=== PATIENT | female | born 1940 | race Hispanic/Latino ===

== ENCOUNTER → 2017-02-14 | Outpatient (CLI) | payer MEDICARE ==
--- NOTE | 2017-02-21 16:10 | REPMRS ---
Patient History The patient states she had a clinical breast exam in 02/16 No known family history of cancer. Taking estrogen for 32 years. Digital Woman Screen Mammo: February 14, 2017 - Exam #: [id number] Bilateral CC and MLO view(s) were taken. Technologist: Deborah Salmon, Technologist Prior study comparison: 2016, digital bilateral screening mammo, [facility]. FINDINGS: There are scattered fibroglandular densities. There has been no change in the appearance of the mammogram from the prior studies. There is a mild amount of residual fibroglandular tissue which is fairly symmetric. There is no interval development of dominant mass, architectural distortion, or clustered microcalcification suggestive of malignancy. ASSESSMENT: BI-RADS/ACR category 1 mammogram. Negative. Recommendation Routine screening mammogram in 1 year (for women over age 40). This mammogram was interpreted with the aid of an FDA-approved computer-aided dectection system. Electronically Signed By: Greg Benjamin MD 02/21/17 [id number]
== END ==
LOC: M WHC 12:48
PROVIDERS: ATTEND Physician Assistant Medical
DX: Z12.31 Encounter for screening mammogram for malignant neoplasm of breast (principal)

== ENCOUNTER → 2017-03-16 | Outpatient (CLI) | payer MEDICARE ==
[2017-03-16 08:56] LABS: BASO % 1.4 % (0.0-1.0); EOS # 0.2 K/mm3 (0.0-0.50); EOS % 4.6 % (0.0-3.0); LARGE UNSTAINED CELL # 0.1 K/mm3 (0.0-0.4); LARGE UNSTAINED CELL % 2.3 % (0.0-4.0); LYMPH % 28.3 % (24.0-44.0); MEAN CORPUSCULAR HEMOGLOBIN 22.5 pg (27.0-33.0); MEAN CORPUSCULAR HGB CONC 30.7 g/dl (32.0-36.5); MEAN CORPUSCULAR VOLUME 73.3 fl (80.0-96.0); MONO # 0.2 K/mm3 (0.0-0.8); MONO % 4.9 % (0.0-5.0); NEUTROPHILS % 58.5 % (36.0-66.0); PLATELET COUNT, AUTOMATED 249 k/mm3 (150-450); RED CELL DISTRIBUTION WIDTH 13.6 % (11.5-14.5); WHITE BLOOD COUNT 3.4 K/mm3 (4.0-10.0)
[2017-03-16 09:18] LABS: ALBUMIN 3.7 GM/DL (3.2-5.2); ALBUMIN/GLOBULIN RATIO 1.19 (1.00-1.93); ALKALINE PHOSPHATASE 74 U/L (45-117); ALT/SGPT 20 U/L (12-78); ANION GAP 7 MEQ/L (8-16); AST/SGOT 12 U/L (15-37); BILIRUBIN,TOTAL 0.2 MG/DL (0.2-1.0); BLOOD UREA NITROGEN 23 MG/DL (7-18); CALCIUM LEVEL 8.9 MG/DL (8.8-10.2); CARBON DIOXIDE LEVEL 28 MEQ/L (21-32); CHLORIDE LEVEL 108 MEQ/L (98-107); CHOLESTEROL LEVEL 143 MG/DL (<200); CREATININE FOR GFR 0.88 MG/DL (0.55-1.02); GLOMERULAR FILTRATION RATE > 60.0 (>39); GLUCOSE, FASTING 203 MG/DL (83-110); POTASSIUM SERUM 4.3 MEQ/L (3.5-5.1); SODIUM LEVEL 143 MEQ/L (136-145); TOTAL PROTEIN 6.8 GM/DL (6.4-8.2); TRIGLYCERIDES LEVEL 110 MG/DL (<150)
== END ==
LOC: M LAB 08:28
PROVIDERS: ATTEND Physician Assistant Medical
DX: E11.9 Type 2 diabetes mellitus without complications (principal); E78.00 Pure hypercholesterolemia, unspecified; R35.0 Frequency of micturition

== ENCOUNTER → 2017-04-25 | Outpatient (REF) | payer MEDICARE | LOC: M SFHCPLAZ 11:58 | PROVIDERS: ATTEND Physician Assistant Medical | DX: E11.9 Type 2 diabetes mellitus without complications (principal) | CPT/HCPCS: 83036; 90662; G0463 ==

== ENCOUNTER → 2017-05-22 | Outpatient (REF) | payer MEDICARE | LOC: M SFHCPLAZ 14:25 | PROVIDERS: ATTEND Physician Assistant Medical | DX: E11.9 Type 2 diabetes mellitus without complications (principal) ==

== ENCOUNTER → 2017-08-03 | Outpatient (CLI) | payer MEDICARE | LOC: M SMT 11:02 | DX: M25.78 Osteophyte, vertebrae (principal); M54.32 Sciatica, left side; E11.9 Type 2 diabetes mellitus without complications | CPT/HCPCS: 72110; 83036 ==

== ENCOUNTER → 2017-08-03 | Outpatient (REF) | payer MEDICARE ==
[2017-08-03 14:33] LABS: ESTIMATED AVERAGE GLUCOSE 177 MG/DL (60-110); HEMOGLOBIN A1c 7.8 %
== END ==
LOC: M SFHCPLAZ 10:14
DX: E11.9 Type 2 diabetes mellitus without complications (principal)
CPT/HCPCS: 83036

== ENCOUNTER → 2017-09-18 | Outpatient (REF) | payer MEDICARE ==
[2017-09-18 17:46] LABS: INR 0.92; PROTHROMBIN TIME 12.4 SECONDS (12.4-14.5)
[2017-09-18 17:47] LABS: PARTIAL THROMBOPLASTIN TIME 34.9 SECONDS (26.8-37.9)
[2017-09-18 19:04] LABS: ESTIMATED AVERAGE GLUCOSE 180 MG/DL (60-110); HEMOGLOBIN A1c 7.9 %
== END ==
LOC: M SFHCPLAZ 14:55
DX: Z01.812 Encounter for preprocedural laboratory examination (principal); H26.9 Unspecified cataract; E11.9 Type 2 diabetes mellitus without complications; Z79.899 Other long term (current) drug therapy; Z79.4 Long term (current) use of insulin; Z79.82 Long term (current) use of aspirin
CPT/HCPCS: 83036

== ENCOUNTER 2017-09-25 06:59 | Day surgery (SDC) | payer MEDICARE ==
[~2017-09-25 06:59] MED LIST: ACETAMINOPHEN 325 MG TAB PO
[2017-09-25] MEDS ORDERED: PHENYLEPHRINE HCL 10 % OPHTH. SOL 5ML OS (07:00)
[2017-09-25] MEDS ORDERED: PROPARACAINE 0.5% OPHTH SOL 15ML OS (07:01)
[2017-09-25] MEDS ORDERED: KETOROLAC 0.5% OPHTH SOLN OS (07:30)
[2017-09-25] MEDS ORDERED: TRIMETHOBENZAMIDE 300 MG CAP PO (07:30)
[2017-09-25] MEDS: LIDOCAINE 3.5 % 1ML OPHTH TOPICAL GEL OU (08:00)
[2017-09-25] MEDS: D5W/0.2% SODIUM CHLORIDE 1,000 ML IV (08:05)
[2017-09-25] MEDS: OFLOXACIN 0.3 % (OCUFLOX) OPTH SOL 5ML OS (08:05)
[2017-09-25] MEDS: CYCLOPENTOLATE 2% OPHTH SOLN 2ML BTL OS (08:05)
[2017-09-25] MEDS: TROPICAMIDE 1% OPHTH SOLN 2ML OS (08:05)
[2017-09-25] MEDS: PHENYLEPHRINE 2.5% OPHTH SOL 2ML OS (08:05)
[2017-09-25] MEDS: DEXTROSE 50% 50 ML SYRINGE IV (08:10)
[2017-09-25] MEDS ORDERED: fentaNYL 100 MCG/2 ML INJECTION (J3010) As Ordered (08:57)
[2017-09-25] MEDS ORDERED: MIDAZOLAM INJ 2 MG/2 ML VIAL (J2250) As Ordered (08:57)
[2017-09-25 09:02] LABS: BEDSIDE GLUCOSE 146 MG/DL (83-110)
[2017-09-25 09:02] LABS: BEDSIDE GLUCOSE 67 MG/DL (83-110)
[2017-09-25] MEDS: TRIAMCINOLONE PRES FR 40 MG/ML 1ML(TRIESENCE)(OR EYE ONLY)(J3300 PER 1MG) As Ordered (09:05)
[2017-09-25] MEDS: BSS with VANC/TOB/EPI for EYE CASES IR (09:05)
[2017-09-25] MEDS: LIDOCAINE 1% SDV 5 ML VIAL As Ordered (09:05)
[2017-09-25] MEDS: MOXIFLOXACIN IN BSS 0.25MG/0.25ML INTRACAMERAL INJ (OR EYE ONLY)(J2280) As Ordered (09:05)
[2017-09-25] MEDS: HEALON DUET (HEALON 10MG/ML 0.55ML & HEALON ENDOCOAT 30MG/ML 0.85ML) As Ordered (09:05)
[2017-09-25] MEDS: POVIDONE-IODINE 5% OPHTH PREP SOL 30ML As Ordered (09:05)
[2017-09-25] MEDS: AcetaZOLAMIDE 500 MG ER CAP PO (09:39)
[2017-09-25] MEDS ORDERED: ONDANSETRON 4MG/2ML VIAL (J2405) As Ordered (09:41)
[2017-09-25] MEDS: ONDANSETRON 4MG/2ML VIAL (J2405) IV (09:50)
[2017-09-25] MEDS ORDERED: LR 1,000 ML IV (10:15)
[2017-09-25] MEDS ORDERED: ACETAMINOPHEN TAB 650MG DOSE (2X325MG) PO (10:15)
== END 2017-09-25 10:18 | disposition home or self-care (01) ==
LOC: M SDC 06:59
DX: H25.9 Unspecified age-related cataract (principal); E11.9 Type 2 diabetes mellitus without complications; K21.9 Gastro-esophageal reflux disease without esophagitis; Z79.82 Long term (current) use of aspirin; Z79.4 Long term (current) use of insulin; Z79.899 Other long term (current) drug therapy
CPT/HCPCS: 66984

== ENCOUNTER → 2017-10-17 | Outpatient (REF) | payer MEDICARE ==
[2017-10-17 12:53] LABS: BASO % 0.6 % (0.0-1.0); EOS # 0.1 10^3/uL (0.0-0.50); EOS % 1.9 % (0.0-3.0); HEMATOCRIT 37.6 % (36.0-47.0); HEMOGLOBIN 11.3 g/dl (12.0-15.5); IMMATURE GRANULOCYTE % 0.2 % (0-3.0); LYMPH # 1.3 10^3/uL (1.5-4.5); LYMPH % 27.5 % (24.0-44.0); MEAN CORPUSCULAR HEMOGLOBIN 21.9 pg (27.0-33.0); MEAN CORPUSCULAR HGB CONC 30.1 g/dl (32.0-36.5); MEAN CORPUSCULAR VOLUME 72.7 fl (80.0-96.0); MONO # 0.4 10^3/uL (0.0-0.8); MONO % 8.3 % (0.0-5.0); NEUTROPHILS # 2.9 10^3/uL (1.8-7.7); NEUTROPHILS % 61.5 % (36.0-66.0); PLATELET COUNT, AUTOMATED 292 10^3/uL (150-450); RED BLOOD COUNT 5.17 10^6/uL (4.00-5.40); RED CELL DISTRIBUTION WIDTH 15.3 % (11.5-14.5); WHITE BLOOD COUNT 4.7 10^3/uL (4.0-10.0)
[2017-10-17 13:06] LABS: PROTHROMBIN TIME 12.2 SECONDS (12.4-14.5)
[2017-10-17 13:07] LABS: PARTIAL THROMBOPLASTIN TIME 33.1 SECONDS (26.8-37.9)
[2017-10-17 13:27] LABS: ALBUMIN/GLOBULIN RATIO 1.14 (1.00-1.93); ALKALINE PHOSPHATASE 88 U/L (45-117); ALT/SGPT 32 U/L (12-78); ANION GAP 7 MEQ/L (8-16); AST/SGOT 26 U/L (7-37); BILIRUBIN,TOTAL 0.3 MG/DL (0.2-1.0); BLOOD UREA NITROGEN 16 MG/DL (7-18); CALCIUM LEVEL 8.7 MG/DL (8.8-10.2); CARBON DIOXIDE LEVEL 27 MEQ/L (21-32); CHLORIDE LEVEL 109 MEQ/L (98-107); CREATININE FOR GFR 1.19 MG/DL (0.55-1.30); GLOMERULAR FILTRATION RATE 46.8 (>39); GLUCOSE, FASTING 124 MG/DL (70-100); POTASSIUM SERUM 4.7 MEQ/L (3.5-5.1); SODIUM LEVEL 143 MEQ/L (136-145); TOTAL PROTEIN 7.5 GM/DL (6.4-8.2)
[2017-10-17 13:57] LABS: ESTIMATED AVERAGE GLUCOSE 171 MG/DL (60-110); HEMOGLOBIN A1c 7.6 %
== END ==
LOC: M SFHCPLAZ 09:40
DX: Z01.818 Encounter for other preprocedural examination (principal); H26.9 Unspecified cataract; E11.9 Type 2 diabetes mellitus without complications; Z79.4 Long term (current) use of insulin; Z79.82 Long term (current) use of aspirin; Z79.899 Other long term (current) drug therapy
CPT/HCPCS: 80053

== ENCOUNTER 2017-10-23 08:41 | Day surgery (SDC) | payer MEDICARE ==
[~2017-10-23 08:41] MED LIST changes: +PHENYLEPHRINE HCL 10 % OPHTH. SOL 5ML OD
[2017-10-23] MEDS ORDERED: OFLOXACIN 0.3 % (OCUFLOX) OPTH SOL 5ML As Ordered (09:52)
[2017-10-23] MEDS ORDERED: PHENYLEPHRINE 2.5% OPHTH SOL 2ML As Ordered (09:52)
[2017-10-23] MEDS ORDERED: TROPICAMIDE 1% OPHTH SOLN 2ML As Ordered (09:52)
[2017-10-23] MEDS ORDERED: CYCLOPENTOLATE 2% OPHTH SOLN 2ML BTL As Ordered (09:52)
[2017-10-23 10:26] LABS: BEDSIDE GLUCOSE 63 MG/DL (83-110)
[2017-10-23] MEDS: OFLOXACIN 0.3 % (OCUFLOX) OPTH SOL 5ML OD (10:34)
[2017-10-23] MEDS: TROPICAMIDE 1% OPHTH SOLN 2ML OD (10:34)
[2017-10-23] MEDS: CYCLOPENTOLATE 2% OPHTH SOLN 2ML BTL OD (10:34)
[2017-10-23] MEDS: LIDOCAINE 3.5 % 1ML OPHTH TOPICAL GEL OU (10:34)
[2017-10-23] MEDS: PHENYLEPHRINE 2.5% OPHTH SOL 2ML OD (10:34)
[2017-10-23] MEDS ORDERED: ONDANSETRON 4MG/2ML VIAL (J2405) As Ordered (10:36)
[2017-10-23] MEDS ORDERED: METOCLOPRAMIDE INJ 10MG/2ML VIAL (J2765) As Ordered (10:37)
[2017-10-23] MEDS ORDERED: MIDAZOLAM INJ 2 MG/2 ML VIAL (J2250) As Ordered (10:58)
[2017-10-23] MEDS ORDERED: fentaNYL 100 MCG/2 ML INJECTION (J3010) As Ordered (10:58)
[2017-10-23] MEDS ORDERED: D5W 1,000 ML IV (11:00)
[2017-10-23] MEDS: BSS with VANC/TOB/EPI for EYE CASES IR (11:25)
[2017-10-23] MEDS: HEALON DUET (HEALON 10MG/ML 0.55ML & HEALON ENDOCOAT 30MG/ML 0.85ML) As Ordered (11:25)
[2017-10-23] MEDS: TRIAMCINOLONE PRES FR 40 MG/ML 1ML(TRIESENCE)(OR EYE ONLY)(J3300 PER 1MG) As Ordered (11:25)
[2017-10-23] MEDS: MOXIFLOXACIN IN BSS 0.25MG/0.25ML INTRACAMERAL INJ (OR EYE ONLY)(J2280) As Ordered (11:25)
[2017-10-23] MEDS: POVIDONE-IODINE 5% OPHTH PREP SOL 30ML As Ordered (11:25)
[2017-10-23] MEDS: LIDOCAINE 1% SDV 5 ML VIAL As Ordered (11:25)
[2017-10-23] MEDS ORDERED: AcetaZOLAMIDE 500 MG ER CAP As Ordered (11:59)
[2017-10-23] MEDS: AcetaZOLAMIDE 500 MG ER CAP PO (12:06)
[2017-10-23] MEDS ORDERED: TRIMETHOBENZAMIDE 300 MG CAP PO (12:15)
== END 2017-10-23 12:20 | disposition home or self-care (01) ==
LOC: M SDC 08:41
DX: H25.9 Unspecified age-related cataract (principal); E11.9 Type 2 diabetes mellitus without complications; K21.9 Gastro-esophageal reflux disease without esophagitis; G47.30 Sleep apnea, unspecified; Z79.82 Long term (current) use of aspirin; Z79.4 Long term (current) use of insulin; Z79.899 Other long term (current) drug therapy
CPT/HCPCS: 66984